=== PATIENT | female | born 1995 | race American Indian/Alaskan Native ===

== ENCOUNTER 2017-04-04 09:10 | Emergency (ER) | payer OTHER ==
[2017-04-04 09:10] VITALS: BMI 34.5
[2017-04-04 09:14] VITALS: BP 128/78; PULSE 86; RESP 17; TEMP 97.5; O2SAT 99
--- NOTE | 2017-04-04 10:37 | C.PDOC ---
History Of Present Illness Patient is a 22 year old female who presents to the ER with a complaint of chronic right sided sinus pain and a dry cough for 3 years. Patient has been give Rx by PMD for various medications and nasal sprays; however, nothing seems to work. Patient states she had an "MRI" of the sinus done 6 months ago, which showed chronic sinus blockage. Denies fever or chills. Time Seen by Provider: 04/04/17 09:40 Chief Complaint (Nursing): Cough, Cold, Congestion History Per: Patient History/Exam Limitations: no limitations Onset/Duration Of Symptoms: Days Current Symptoms Are (Timing): Still Present Location Of Pain: Sinus/es Sick Contacts (Context): None Associated Symptoms: Cough (Dry) Ear Symptoms: Bilateral: None Recent travel outside of the [place]: No Past Medical History Reviewed: Historical Data, Nursing Documentation, Vital Signs Vital Signs: Last Vital Signs Temp 97.5 F L 04/04/17 09:13 Pulse 86 04/04/17 09:13 Resp 17 04/04/17 09:13 BP 128/78 04/04/17 09:13 Pulse Ox 99 04/04/17 10:50 - Medical History PMH: Anemia, Asthma, Bronchitis, Kidney Stones, Sexually Transmitted Disease ( HPV) Surgical History: No Surg Hx - [facility] Procedures APPLICATION OF SPLINT (12/03/14) Family History: States: Unknown Family Hx - Social History Hx Tobacco Use: No Hx Alcohol Use: No Hx Substance Use: No - Immunization History Hx Tetanus Toxoid Vaccination: No Hx Influenza Vaccination: No Hx Pneumococcal Vaccination: No Review Of Systems Except As Marked, All Systems Reviewed And Found Negative. Respiratory: Positive for: Cough (Dry) Physical Exam - Physical Exam Appears: Non-toxic, No Acute Distress Skin: Normal Color, Warm, Dry Head: Atraumatic, Tenderness (Mild to right maxillary sinus) Oral Mucosa: Moist Chest: Symmetrical, No Tenderness Cardiovascular: Rhythm Regular, No Murmur Respiratory: Normal Breath Sounds, No Rales, No Rhonchi, No Wheezing Gastrointestinal/Abdominal: Soft, No Tenderness Neurological/Psych: Oriented x3, Normal Speech, Normal Cognition ED Course And Treatment O2 Sat by Pulse Oximetry: 99 (Room air) Pulse Ox Interpretation: Normal Progress Note: Rx for referral to ENT for chronic sinus infection given. Disposition - Disposition Referrals: Johan An MD [Staff Provider] - Disposition: HOME/ ROUTINE Disposition Time: 09:50 Condition: GOOD Additional Instructions: Thank you for letting us take care of you today. Your provider was Dr. Ortiz. You were treated for chronic sinusitis. The emergency medical care you received today was directed at your acute symptoms. If you were prescribed any medication, please fill it and take as directed. It may take several days for your symptoms to resolve. Return to the Emergency Department if your symptoms worsen, do not improve, or if you have any other problems. Please contact your doctor or call one of the physicians/clinics you have been referred to that are listed on the Patient Visit Information form that is included in your discharge packet. Bring any paperwork you were given at discharge with you along with any medications you are taking to your follow up visit. Our treatment cannot replace ongoing medical care by a primary care provider (PCP) outside of the emergency department. Thank you for allowing the [facility] team to be part of your care today. Follow up with the ENT doctor in 4-6 days for evaluation. Prescriptions: Montelukast [Singulair] 10 mg PO DAILY #14 tab Instructions: Sinusitis (ED) - Clinical Impression Clinical Impression: Sinusitis - Scribe Statement The provider has reviewed the documentation as recorded by the Scribe Brandan Vick All medical record entries made by the Amarilisibe were at my direction and personally dictated by me. I have reviewed the chart and agree that the record accurately reflects my personal performance of the history, physical exam, medical decision making, and the department course for this patient. I have also personally directed, reviewed, and agree with the discharge instructions and disposition.
== END 2017-04-04 09:52 | disposition home or self-care (01) ==
LOC: C.ER 09:10
DX: J32.9 Chronic sinusitis, unspecified (principal)

== ENCOUNTER 2018-01-05 09:26 | Emergency (ER) | payer OTHER ==
[2018-01-05 09:26] VITALS: BMI 34.5
[2018-01-05 09:35] VITALS: PULSE 76; RESP 18; O2SAT 99
[2018-01-05 10:22] LABS: HCG,QUALITATIVE URINE NEGATIVE (NEGATIVE)
[2018-01-05 10:27] LABS: SQUAMOUS EPITHIAL 40 /hpf (0-5); URINE BACTERIA RARE (<OCC); URINE BILIRUBIN NEGATIVE (NEGATIVE); URINE BLOOD NEGATIVE (NEGATIVE); URINE CLARITY Hazy (Clear); URINE COLOR Yellow (YELLOW); URINE GLUCOSE (UA) NORMAL (Normal); URINE LEUKOCYTE ESTERASE 1+ Leu/uL (Negative); URINE PROTEIN NEGATIVE (NEGATIVE); URINE UROBILINOGEN NORMAL mg/dL (0.2-1.0)
--- NOTE | 2018-01-05 11:22 | C.PDOC ---
History Of Present Illness 22 year old female presents to the ED for evaluation of abnormal period. Patient reports that during the whole month of December patient did not have her period but she had 2 episodes of cramps, scant bleeding that lasted for a couple of hours then stopped. Patient presents to the ED today because she mad an appointment with her [employer] that was at the end of January but she wanted to be seen earlier. Patient denies fever, chills, nausea, vomit, back pain. Patient denies any complaints now. Time Seen by Provider: 01/05/18 09:37 Chief Complaint (Nursing): Abdominal Pain History Per: Patient History/Exam Limitations: no limitations Onset/Duration Of Symptoms: Days Current Symptoms Are (Timing): Gone Severity: None Radiation Of Pain To:: None Quality Of Discomfort: Unable To Describe Exacerbating Factors: None Alleviating Factors: None Recent travel outside of the [place]: No Additional History Per: Patient Abnormal Vaginal Bleeding: No Past Medical History Reviewed: Historical Data, Nursing Documentation, Vital Signs Vital Signs: Last Vital Signs Temp 98 F 01/05/18 09:32 Pulse 76 01/05/18 09:32 Resp 18 01/05/18 09:32 BP 117/81 01/05/18 09:32 Pulse Ox 99 01/05/18 13:00 - Medical History PMH: Anemia, Asthma, Bronchitis, Kidney Stones, Sexually Transmitted Disease ( HPV) Surgical History: No Surg Hx - [facility] Procedures APPLICATION OF SPLINT (12/03/14) Family History: States: Unknown Family Hx - Social History Hx Tobacco Use: No Hx Alcohol Use: No Hx Substance Use: No - Immunization History Hx Tetanus Toxoid Vaccination: No Hx Influenza Vaccination: No Hx Pneumococcal Vaccination: No Review Of Systems Constitutional: Negative for: Fever, Chills Gastrointestinal: Negative for: Vomiting, Abdominal Pain Genitourinary: Negative for: Dysuria, Hematuria, Vaginal Discharge, Vaginal Bleeding Musculoskeletal: Negative for: Back Pain Skin: Negative for: Rash Physical Exam - Physical Exam Appears: Non-toxic, No Acute Distress Skin: Normal Color, Warm, Dry Head: Atraumatic, Normacephalic Eye(s): bilateral: Normal Inspection Nose: No Discharge Oral Mucosa: Moist Neck: Normal ROM, Supple Chest: Symmetrical Cardiovascular: Rhythm Regular, No Murmur Respiratory: Normal Breath Sounds, No Rales, No Rhonchi, No Wheezing Gastrointestinal/Abdominal: Soft, No Tenderness, No Guarding, No Rebound Extremity: Normal ROM, No Tenderness, No Swelling Neurological/Psych: Oriented x3 Gait: Steady ED Course And Treatment O2 Sat by Pulse Oximetry: 99 (On RA) Pulse Ox Interpretation: Normal - CT Scan/US Pelvic US Other Rad Studies (CT/US): Read By Radiologist, Radiology Report Reviewed CT/US Interpretation: Accession No. : [id number]. Patient Name / ID : LILY LAO / [id number]. Exam Date : 01/05/2018 11:12:25 ( Approved ). Study Comment : Sex / Age : F / 22Y. Creator : Andrews Lund MD. Dictator : Andrews Lund MD. Research Kennel Supervisor : Head Of Biology : Andrews Lund MD. Approver2 : Report Date : 01/05/2018 12:58:24. My Comment : . HISTORY: pelvic pain, irregular period. COMPARISON: None available. TECHNIQUE: Transabdominal and transvaginal. FINDINGS: UTERUS: Measures 6.7 x 3.8 x 4.8 cm. Normal in size and appearance. No fibroid or other mass lesion seen. ENDOMETRIUM: Measures 7 mm in diameter. Unremarkable. CERVIX: No cervical abnormality identified. RIGHT OVARY: Measures 2.7 x 2.0 x 3.4 cm. No solid mass. Normal flow. LEFT OVARY: Measures 3.3 x 2.1 x 3.0 cm. No solid mass. Normal flow. FREE FLUID: No significant free fluid noted. OTHER FINDINGS: None. IMPRESSION: Unremarkable pelvic ultrasound. Medical Decision Making Medical Decision Making: Impression: abnormal period Plan: * US pelvis * UA Disposition - Disposition Disposition: HOME/ ROUTINE Disposition Time: 13:00 Condition: STABLE Additional Instructions: Follow up with PMD and OBGYN within 1-2 days. Return to ED if feel worse. Instructions: Absent or Irregular Periods Forms: [facility] (Arabic) - Clinical Impression Clinical Impression: Irregular periods/menstrual cycles - PA / [employer] EQUIPMENT OPERATOR / Resident Statement MD/DO has reviewed & agrees with the documentation as recorded. - Scribe Statement The provider has reviewed the documentation as recorded by the Scribe Ced Gama All medical record entries made by the Scribe were at my direction and personally dictated by me. I have reviewed the chart and agree that the record accurately reflects my personal performance of the history, physical exam, medical decision making, and the department course for this patient. I have also personally directed, reviewed, and agree with the discharge instructions and disposition.
--- NOTE | 2018-01-05 12:59 | US ---
HISTORY: pelvic pain, irregular period COMPARISON: None available. TECHNIQUE: Transabdominal and transvaginal FINDINGS: UTERUS: Measures 6.7 x 3.8 x 4.8 cm. Normal in size and appearance. No fibroid or other mass lesion seen. ENDOMETRIUM: Measures 7 mm in diameter. Unremarkable. CERVIX: No cervical abnormality identified. RIGHT OVARY: Measures 2.7 x 2.0 x 3.4 cm. No solid mass. Normal flow. LEFT OVARY: Measures 3.3 x 2.1 x 3.0 cm. No solid mass. Normal flow. FREE FLUID: No significant free fluid noted. OTHER FINDINGS: None. IMPRESSION: Unremarkable pelvic ultrasound.
[2018-01-05 13:17] VITALS: BP 105/73; TEMP 98.9
== END 2018-01-05 13:17 | disposition home or self-care (01) ==
LOC: C.ER 09:26
DX: N92.6 Irregular menstruation, unspecified (principal); D64.9 Anemia, unspecified